=== PATIENT | female | born 1940 | race Caucasian/White ===

== ENCOUNTER 2023-04-01 20:52 | Emergency (ER) | payer MEDICARE, OTHER ==
[~2023-04-01] VITALS: Ht 154.9 cm; Wt 48.2 kg
[2023-04-01 22:09] VITALS: BP 164/88; PULSE 71; RESP 18; TEMP 98.4; O2SAT 98
== END 2023-04-01 22:11 | disposition home or self-care (01) ==
LOC: ER 20:54
DX: S92.531A Displaced fracture of distal phalanx of right lesser toe(s), initial encounter for closed fracture (principal); Z88.6 Allergy status to analgesic agent; W55.12XA Struck by horse, initial encounter; Y93.89 Activity, other specified; Y92.89 Other specified places as the place of occurrence of the external cause; Y99.8 Other external cause status
CPT/HCPCS: 73660; 99283

== ENCOUNTER 2023-08-11 10:27 | Emergency (ER) | payer MEDICARE, OTHER ==
[~2023-08-11] VITALS: Ht 154.9 cm; Wt 50.9 kg
[2023-08-11 11:16] VITALS: BP 139/77; PULSE 66; RESP 16; TEMP 98.1; O2SAT 96
[2023-08-11] MEDS ORDERED: LIDO700A32 TOP (12:25)
== END 2023-08-11 13:02 | disposition home or self-care (01) ==
LOC: ER 10:28
DX: S93.601A Unspecified sprain of right foot, initial encounter (principal); X58.XXXA Exposure to other specified factors, initial encounter; Y93.89 Activity, other specified; Y92.89 Other specified places as the place of occurrence of the external cause; Y99.8 Other external cause status
CPT/HCPCS: 73630; 99284

== ENCOUNTER 2023-12-05 09:37 | Inpatient (IN) | payer MEDICARE, OTHER ==
[2023-12-05] VITALS (19 sets, daily range): BP systolic 58–160; BP diastolic 41–84; PULSE 50–93; RESP 10–23; TEMP 98; O2SAT 93–99
[~2023-12-05] VITALS: Ht 154.9 cm; Wt 68.2 kg
[~2023-12-05 09:37] MED LIST: LIDO700A32 TOP
[2023-12-05] MEDS: normal saline 1,000 ML IV SCH (09:55)
[2023-12-05] MEDS ORDERED: DONE10TA44 PO (10:16)
[2023-12-05] MEDS ORDERED: OXYB5TAB21 PO (10:16)
[2023-12-05] MEDS ORDERED: ASPIRIN PO (10:21)
[2023-12-05] MEDS ORDERED: BETA1TAB20 PO (10:21)
[2023-12-05] MEDS ORDERED: Vitamin D3 (10:21)
[2023-12-05] MEDS ORDERED: VITA-268 PO (10:21)
[2023-12-05] MEDS ORDERED: CENTRUM (10:21)
[2023-12-05] MEDS ORDERED: verapamil 2.5 mg/ml inj IV ONE (10:43)
[2023-12-05] MEDS ORDERED: midazolam 1 mg/ML 2ml injection ONE ×8 (10:43→18:54)
[2023-12-05] MEDS ORDERED: nitroGLYCERIN 500mcg/5mL D5W 5 ML IV ONE ×2 (10:44→15:15)
[2023-12-05] MEDS ORDERED: heparin 1,000unit/ml 10ml vial 0 ML ONE (10:44)
[2023-12-05] MEDS ORDERED: iohexol 350 MG/ML 50ML vial IV ONE (10:44)
[2023-12-05] MEDS ORDERED: fentaNYL/PF 50MCG/1 ML 2ML syringe ONE ×4 (10:44→18:54)
[2023-12-05] MEDS ORDERED: heparin 1,000 UNITS/NS 500ml 500 ML ONE ×2 (10:44→12:29)
[2023-12-05] MEDS ORDERED: iohexol 350MG/ML 100ml bottle IV ONE ×6 (10:44→18:55)
[2023-12-05] MEDS ORDERED: LIDOcaine 1% (10mg/ml) 2ml vial ONE (10:45)
[2023-12-05 10:46] LABS: BASOPHILS # (AUTO) 0.1 X10'3 (0-0.2); EOSINOPHILS # (AUTO) 0.1 X10'3 (0-0.9); EOSINOPHILS % (AUTO) 1.8 % (0-6); HEMOGLOBIN 14.2 g/dl (12.0-16.0); LYMPHOCYTES # (AUTO) 1.8 X10'3 (1.1-4.8); LYMPHOCYTES % (AUTO) 33.4 % (21-51); MEAN CORPUSCULAR HEMOGLOBIN 30.6 PG (27.0-31.0); MEAN CORPUSCULAR HGB CONC 32.9 g/dL (33.0-36.5); MEAN CORPUSCULAR VOLUME 92.8 FL (78-98); MEAN PLATELET VOLUME 9.5 FL (7.4-10.4); MONOCYTES # (AUTO) 0.4 X10'3 (0-0.9); MONOCYTES % (AUTO) 7.9 % (2-12); NEUTROPHILS # (AUTO) 3.1 X10'3 (1.8-7.7); NEUTROPHILS % (AUTO) 55.9 % (42-75); PLATELET COUNT 203 X10'3 (140-440); RED BLOOD COUNT 4.63 X10'6 (4.20-5.60); RED CELL DISTRIBUTION WIDTH 14.3 % (11.5-14.5); WHITE BLOOD COUNT 5.5 X10'3 (4.5-11.0)
[2023-12-05] MEDS: diphenhydrAMINE 25mg capsule PO PRN (10:56)
[2023-12-05] MEDS: sodium bicarbonate 1meq/ml syr 150 ML in dextrose 5%-water 1,000 ML IV SCH ×2 (10:57→22:12)
[2023-12-05] MEDS ORDERED: sodium bicarbonate 1meq/ml syr 150 ML in dextrose 5%-water 1,000 ML IV ONE (11:06)
[2023-12-05 11:07] LABS: ALBUMIN 3.7 G/DL (3.4-5.0); ANION GAP 10 (8-16); BLOOD UREA NITROGEN 14 MG/DL (7-18); BUN/CREATININE RATIO 19.2 (10.0-20.0); CALCIUM 9.5 MG/DL (8.5-10.1); CHLORIDE 104 MMOL/L (99-107); CREATININE 0.73 MG/DL (0.40-0.90); GLUCOSE 99 MG/DL (70-104); MAGNESIUM 2.3 MG/DL (1.5-2.4); POTASSIUM 3.9 MMOL/L (3.5-5.1); SODIUM 142 MMOL/L (135-145); TOTAL CARBON DIOXIDE 28.3 MMOL/L (24-32); eCRCL 43 ML/MIN; eGFR 76 ML/MIN
[2023-12-05 11:33] LABS: PROTHROMBIN TIME 11.2 SECONDS (9.0-12.0)
[2023-12-05] MEDS ORDERED: phenylephrine 10mg/ml inj. -priapism dosing ONE ×3 (12:55→18:54)
[2023-12-05] MEDS ORDERED: ticagrelor 90mg tablet ONE (13:16)
[2023-12-05] MEDS: ondansetron/PF 4mg/2ml inj IV STA (13:54)
[2023-12-05] MEDS ORDERED: epiNEPHrine 0.1mg/ml 10ml syringe ONE ×2 (14:05→18:55)
[2023-12-05] MEDS ORDERED: heparin 1,000unit/ml 10ml vial 10 ML ONE ×2 (14:05→18:54)
[2023-12-05] MEDS ORDERED: LIDOcaine 2% (20 mg/ml) 5ml cardiac syringe ONE ×2 (14:05→18:55)
[2023-12-05] MEDS ORDERED: LIDOcaine 1% 30ml preserv. free vial ONE ×2 (14:05→18:54)
[2023-12-05] MEDS ORDERED: atropine 0.1mg/ml 10ml syringe ONE ×2 (14:05→18:54)
[2023-12-05] MEDS ORDERED: tirofiban 12.5mg in NS 250mL 250 ML IV ONE (14:27)
[2023-12-05] MEDS ORDERED: nitroGLYCERIN-Tridil 50MG/D5W 250 ML IV ONE (15:30)
[2023-12-05] MEDS: normal saline 1000ml 1,000 ML IV SCH (16:35)
[2023-12-05] MEDS ORDERED: nitroGLYCERIN 25mg/250mL D5W 250 ML IV SCH (16:55)
[2023-12-05] MEDS: ondansetron/PF 4mg/2ml inj IV PRN (17:27)
[2023-12-05] MEDS: tirofiban 12.5mg in NS 250mL IV SCH (17:32)
[2023-12-05] MEDS: nitroGLYCERIN 25mg/250mL D5W 250 ML IV SCH (17:40)
[2023-12-05] MEDS: PHENYLephrine 10mg/ml inj. 100 MG in normal saline 250ml IV soln 240 ML IV PRN (18:40)
[2023-12-05] MEDS: normal saline 1000ml 1,000 ML IV ONE (19:13)
[2023-12-05] MEDS ORDERED: potassium CL 10mEq/100ml bag 100 ML IV PRN (20:30)
[2023-12-05] MEDS ORDERED: nitroGLYCERIN-Tridil 50MG/D5W 250 ML IV PRN (20:55)
[2023-12-05] MEDS: proCHLORperazine 10 MG/2 ml inj IV PRN (20:57)
[2023-12-05] MEDS: ketorolac tromethamine 15mg/ml inj. IM ONE (20:59)
[2023-12-05] MEDS: mag hydrox/Alum hydrox/simeth 30ml oral suspension PO ONE (22:18)
[2023-12-05 23:37] LABS: ALBUMIN 2.6 G/DL (3.4-5.0); ANION GAP 11 (8-16); BLOOD UREA NITROGEN 12 MG/DL (7-18); CHLORIDE 108 MMOL/L (99-107); CREATININE 0.75 MG/DL (0.40-0.90); GLUCOSE 248 MG/DL (70-104); MAGNESIUM 1.8 MG/DL (1.5-2.4); POTASSIUM 3.8 MMOL/L (3.5-5.1); SODIUM 141 MMOL/L (135-145); TOTAL CARBON DIOXIDE 22.3 MMOL/L (24-32); eCRCL 41 ML/MIN; eGFR 73 ML/MIN
[2023-12-05 23:39] LABS: CALCIUM 7.3 MG/DL (8.5-10.1)
[2023-12-05 23:42] LABS: HEMATOCRIT 34.6 % (35.0-45.0); HEMOGLOBIN 11.5 g/dl (12.0-16.0); MEAN CORPUSCULAR HEMOGLOBIN 30.7 PG (27.0-31.0); MEAN CORPUSCULAR HGB CONC 33.4 g/dL (33.0-36.5); MEAN CORPUSCULAR VOLUME 92.1 FL (78-98); MEAN PLATELET VOLUME 10.1 FL (7.4-10.4); PLATELET COUNT 222 X10'3 (140-440); RED BLOOD COUNT 3.76 X10'6 (4.20-5.60); WHITE BLOOD COUNT 14.3 X10'3 (4.5-11.0)
[2023-12-06] VITALS (24 sets, daily range): BP systolic 92–138; BP diastolic 64–80; PULSE 75–96; RESP 14–22; O2SAT 78–98
[2023-12-06] MEDS: HYDROcodone/acetaminophen 5mg/325mg tablet PO PRN (01:04)
[2023-12-06] MEDS: potassium Cl 40MEQ/1/2NS 520ml 520 ML IV PRN (02:16)
[2023-12-06] MEDS: magnesium 4gm in 100ml NS 100 ML IV PRN (02:21)
[2023-12-06] MEDS ORDERED: ASPI-1397 PO (06:35)
[2023-12-06] MEDS ORDERED: CHOL100017 PO (06:35)
[2023-12-06] MEDS ORDERED: ATOR40TA72 PO (06:35)
[2023-12-06] MEDS ORDERED: MULT-1085 PO (06:35)
[2023-12-06 06:46] LABS: BASOPHILS % (AUTO) 0.2 % (0-1); EOSINOPHILS % (AUTO) 0 % (0-6); HEMOGLOBIN 10.3 g/dl (12.0-16.0); LYMPHOCYTES # (AUTO) 1.3 X10'3 (1.1-4.8); LYMPHOCYTES % (AUTO) 8.8 % (21-51); MEAN CORPUSCULAR HEMOGLOBIN 30.6 PG (27.0-31.0); MEAN CORPUSCULAR HGB CONC 33.2 g/dL (33.0-36.5); MEAN CORPUSCULAR VOLUME 92.2 FL (78-98); MEAN PLATELET VOLUME 10.3 FL (7.4-10.4); MONOCYTES # (AUTO) 1.1 X10'3 (0-0.9); MONOCYTES % (AUTO) 7.4 % (2-12); NEUTROPHILS # (AUTO) 11.9 X10'3 (1.8-7.7); NEUTROPHILS % (AUTO) 83.6 % (42-75); PLATELET COUNT 205 X10'3 (140-440); RED BLOOD COUNT 3.36 X10'6 (4.20-5.60); RED CELL DISTRIBUTION WIDTH 14.6 % (11.5-14.5); WHITE BLOOD COUNT 14.3 X10'3 (4.5-11.0)
[2023-12-06 07:03] LABS: ALANINE AMINOTRANSFERASE 84 U/L (12-78); ALBUMIN 2.6 G/DL (3.4-5.0); ALKALINE PHOSPHATASE 48 IU/L (46-116); ANION GAP 9 (8-16); ASPARTATE AMINO TRANSFERASE 259 U/L (10-37); BILIRUBIN,TOTAL 0.7 MG/DL (0.1-1.0); BLOOD UREA NITROGEN 14 MG/DL (7-18); BUN/CREATININE RATIO 17.9 (10.0-20.0); CALCIUM 7.4 MG/DL (8.5-10.1); CHLORIDE 105 MMOL/L (99-107); CREATININE 0.78 MG/DL (0.40-0.90); GLUCOSE 212 MG/DL (70-104); MAGNESIUM 3.3 MG/DL (1.5-2.4); POTASSIUM 4.2 MMOL/L (3.5-5.1); SODIUM 139 MMOL/L (135-145); TOTAL CARBON DIOXIDE 25.4 MMOL/L (24-32); TOTAL PROTEIN 5.3 G/DL (6.4-8.2); eCRCL 40 ML/MIN; eGFR 70 ML/MIN
[2023-12-06] MEDS: ketorolac tromethamine 15mg/ml inj. IV ONE (07:19)
[2023-12-06] MEDS: ticagrelor 90mg tablet PO SCH (07:29)
[2023-12-06] MEDS ORDERED: LIDOcaine 1% 30ml preserv. free vial ONE (10:21)
[2023-12-06] MEDS: HYDROcodone/acetaminophen 10/325mg tab PO PRN (12:23)
[2023-12-06] MEDS: normal saline 1000ml 1,000 ML IV SCH (18:43)
[2023-12-06] MEDS ORDERED: acetaminophen 325mg tablet PO PRN (19:40)
[2023-12-06] MEDS ORDERED: magnesium hydroxide 30ml (MOM) UD suspension PO PRN (19:40)
[2023-12-06] MEDS ORDERED: morphine 4 MG/ML inj SYRINge IV PRN ×2 (19:40)
[2023-12-06] MEDS ORDERED: ticagrelor 90mg tablet PO SCH (20:00)
[2023-12-06] MEDS: midodrine 5mg tablet PO ONE (20:32)
[2023-12-06] MEDS: midodrine tablet 2.5 MG TABLET PO ONE (20:32)
[2023-12-06] MEDS: oxybutynin 5mg tablet PO SCH (20:34)
[2023-12-06] MEDS: docusate sod 100mg capsule PO SCH (20:34)
[2023-12-06] MEDS: enoxaparin 30mg/0.3ml syringe SUBCUT SCH (20:35)
[2023-12-07] VITALS (31 sets, daily range): BP systolic 95–121; BP diastolic 55–79; PULSE 77–113; RESP 14–26; O2SAT 87–98
[2023-12-07 03:20] LABS: BASOPHILS % (AUTO) 0.1 % (0-1); EOSINOPHILS % (AUTO) 0 % (0-6); HEMATOCRIT 28.9 % (35.0-45.0); HEMOGLOBIN 9.6 g/dl (12.0-16.0); LYMPHOCYTES # (AUTO) 1.6 X10'3 (1.1-4.8); LYMPHOCYTES % (AUTO) 9.9 % (21-51); MEAN CORPUSCULAR HEMOGLOBIN 30.8 PG (27.0-31.0); MEAN CORPUSCULAR HGB CONC 33.2 g/dL (33.0-36.5); MEAN CORPUSCULAR VOLUME 92.7 FL (78-98); MEAN PLATELET VOLUME 10.1 FL (7.4-10.4); MONOCYTES # (AUTO) 1.3 X10'3 (0-0.9); NEUTROPHILS # (AUTO) 13.3 X10'3 (1.8-7.7); PLATELET COUNT 167 X10'3 (140-440); RED BLOOD COUNT 3.12 X10'6 (4.20-5.60); RED CELL DISTRIBUTION WIDTH 14.6 % (11.5-14.5); WHITE BLOOD COUNT 16.2 X10'3 (4.5-11.0)
[2023-12-07 03:29] LABS: ALBUMIN 2.4 G/DL (3.4-5.0); ANION GAP 7 (8-16); BLOOD UREA NITROGEN 18 MG/DL (7-18); CALCIUM 7.3 MG/DL (8.5-10.1); CHLORIDE 99 MMOL/L (99-107); CHOL/HDL RATIO 2.2 (0.00-4.99); CHOLESTEROL 117 MG/DL (0-200); GLUCOSE 141 MG/DL (70-104); HDL CHOLESTEROL 53 MG/DL (35-60); LDL CHOLESTEROL 60 MG/DL (50-100); MAGNESIUM 2.3 MG/DL (1.5-2.4); POTASSIUM 4.3 MMOL/L (3.5-5.1); SODIUM 135 MMOL/L (135-145); TOTAL CARBON DIOXIDE 29.3 MMOL/L (24-32); TRIGLYCERIDES 64 MG/DL (20-135); eCRCL 31 ML/MIN; eGFR 53 ML/MIN
[2023-12-07] MEDS: magnesium 2GM in 50ml NS 50 ML IV PRN (04:45)
[2023-12-07] MEDS: vitamin B comp w/Vit. C tab 1 TAB TABLET PO SCH (07:17)
[2023-12-07] MEDS: aspirin 81mg, enteric-coated 1 TAB TABLET.DR PO SCH (07:18)
[2023-12-07] MEDS: donepezil 5mg tablet PO SCH (07:18)
[2023-12-07] MEDS: pantoprazole 40mg Tablet.DR PO SCH (07:18)
[2023-12-07] MEDS: cholecalciferol (vitamin D3) 1,000 unit (25mcg) tablet PO SCH (07:19)
[2023-12-07] MEDS: metoprolol succinate 25mg (24-HOUR) SR. Tablet PO SCH (07:19)
[2023-12-07] MEDS: multivitamins, therapeutics tablet PO SCH (07:19)
[2023-12-07] MEDS: ZINC PO SCH (07:30)
[2023-12-07] MEDS: VIT C PO SCH (07:30)
[2023-12-07] MEDS: COPPER PO SCH (07:30)
[2023-12-07] MEDS: VIT E PO SCH (07:30)
[2023-12-07] MEDS: midodrine 5mg tablet PO SCH (07:30)
[2023-12-07] MEDS: VIT A PO SCH (07:30)
[2023-12-07] MEDS: lactose-reduced food (Ensure High Protein) 237ml bottle PO SCH (13:00)
[2023-12-08] VITALS (20 sets, daily range): BP systolic 87–146; BP diastolic 48–76; PULSE 64–101; RESP 14–27; TEMP 97.4–97.9; O2SAT 91–97
[2023-12-08] MEDS: amiodarone 150mg/dext, iso-os 100 ML IV ONE ×2 (04:28→04:54)
[2023-12-08] MEDS: amiodarone/D5 360MG/200ML BAG 200 ML IV SCH ×3 (05:35→10:49)
[2023-12-08] MEDS: bumetanide 0.25mg/ml 4ml vial IV ONE (07:00)
[2023-12-08 07:25] LABS: BASOPHILS % (AUTO) 0.1 % (0-1); EOSINOPHILS % (AUTO) 0 % (0-6); HEMATOCRIT 27.5 % (35.0-45.0); HEMOGLOBIN 9.1 g/dl (12.0-16.0); LYMPHOCYTES # (AUTO) 1.6 X10'3 (1.1-4.8); LYMPHOCYTES % (AUTO) 10.2 % (21-51); MEAN CORPUSCULAR HEMOGLOBIN 30.8 PG (27.0-31.0); MEAN CORPUSCULAR HGB CONC 33.1 g/dL (33.0-36.5); MEAN PLATELET VOLUME 10.8 FL (7.4-10.4); MONOCYTES # (AUTO) 0.8 X10'3 (0-0.9); MONOCYTES % (AUTO) 5.1 % (2-12); NEUTROPHILS # (AUTO) 13.5 X10'3 (1.8-7.7); NEUTROPHILS % (AUTO) 84.6 % (42-75); PLATELET COUNT 151 X10'3 (140-440); RED BLOOD COUNT 2.95 X10'6 (4.20-5.60); RED CELL DISTRIBUTION WIDTH 14.3 % (11.5-14.5); WHITE BLOOD COUNT 15.9 X10'3 (4.5-11.0)
[2023-12-08 08:14] LABS: ALANINE AMINOTRANSFERASE 381 U/L (12-78); ALBUMIN 2.1 G/DL (3.4-5.0); ALBUMIN/GLOBULIN RATIO 0.7 (1.1-1.5); ALKALINE PHOSPHATASE 62 IU/L (46-116); ANION GAP 9 (8-16); ASPARTATE AMINO TRANSFERASE 312 U/L (10-37); BILIRUBIN,TOTAL 1.4 MG/DL (0.1-1.0); BLOOD UREA NITROGEN 27 MG/DL (7-18); BUN/CREATININE RATIO 32.1 (10.0-20.0); CALCIUM 7.8 MG/DL (8.5-10.1); CHLORIDE 100 MMOL/L (99-107); CREATININE 0.84 MG/DL (0.40-0.90); GLUCOSE 161 MG/DL (70-104); MAGNESIUM 2.4 MG/DL (1.5-2.4); POTASSIUM 4.8 MMOL/L (3.5-5.1); SODIUM 133 MMOL/L (135-145); TOTAL CARBON DIOXIDE 24.3 MMOL/L (24-32); TOTAL PROTEIN 5.1 G/DL (6.4-8.2); eCRCL 37 ML/MIN; eGFR 64 ML/MIN
[2023-12-08] MEDS: magnesium 2GM in 50ml NS 50 ML IV ONE (10:53)
[2023-12-08] MEDS: amiodarone 200mg tablet PO SCH (15:54)
[2023-12-08] MEDS: furosemide 40mg/4ml inj IV ONE (18:17)
[2023-12-08] MEDS: furosemide 10 MG/1 ML 10ml inj IV STA (19:27)
[2023-12-08 21:57] LABS: ALANINE AMINOTRANSFERASE 704 U/L (12-78); ALBUMIN 2.2 G/DL (3.4-5.0); ALBUMIN/GLOBULIN RATIO 0.7 (1.1-1.5); ALKALINE PHOSPHATASE 85 IU/L (46-116); ANION GAP 9 (8-16); ASPARTATE AMINO TRANSFERASE 578 U/L (10-37); BLOOD UREA NITROGEN 33 MG/DL (7-18); BUN/CREATININE RATIO 27.7 (10.0-20.0); CALCIUM 7.4 MG/DL (8.5-10.1); CHLORIDE 98 MMOL/L (99-107); CREATININE 1.19 MG/DL (0.40-0.90); GLUCOSE 139 MG/DL (70-104); POTASSIUM 4.4 MMOL/L (3.5-5.1); SODIUM 129 MMOL/L (135-145); TOTAL CARBON DIOXIDE 22.4 MMOL/L (24-32); TOTAL PROTEIN 5.3 G/DL (6.4-8.2); eCRCL 26 ML/MIN; eGFR 43 ML/MIN
[2023-12-08] MEDS: bumetanide 0.25mg/ml 4ml vial IV SCH (22:20)
[2023-12-09] VITALS (17 sets, daily range): BP systolic 79–101; BP diastolic 49–70; PULSE 71–85; RESP 16–24; TEMP 97–97.9; O2SAT 92–98
[2023-12-09] MEDS: furosemide 10 MG/1 ML 10ml inj IV SCH
[2023-12-09] MEDS ORDERED: furosemide 10 MG/1 ML 10ml inj IV SCH
[2023-12-09 03:06] LABS: BASOPHILS % (AUTO) 0.1 % (0-1); EOSINOPHILS % (AUTO) 0.1 % (0-6); HEMATOCRIT 25.4 % (35.0-45.0); HEMOGLOBIN 8.4 g/dl (12.0-16.0); LYMPHOCYTES # (AUTO) 0.9 X10'3 (1.1-4.8); LYMPHOCYTES % (AUTO) 6.9 % (21-51); MEAN CORPUSCULAR HEMOGLOBIN 30.8 PG (27.0-31.0); MEAN CORPUSCULAR VOLUME 93.2 FL (78-98); MEAN PLATELET VOLUME 10.5 FL (7.4-10.4); MONOCYTES # (AUTO) 0.7 X10'3 (0-0.9); MONOCYTES % (AUTO) 5.6 % (2-12); NEUTROPHILS # (AUTO) 11.1 X10'3 (1.8-7.7); NEUTROPHILS % (AUTO) 87.3 % (42-75); PLATELET COUNT 155 X10'3 (140-440); RED BLOOD COUNT 2.73 X10'6 (4.20-5.60); RED CELL DISTRIBUTION WIDTH 14.4 % (11.5-14.5); WHITE BLOOD COUNT 12.7 X10'3 (4.5-11.0)
[2023-12-09 03:25] LABS: ALANINE AMINOTRANSFERASE 717 U/L (12-78); ALBUMIN 2.2 G/DL (3.4-5.0); ALBUMIN/GLOBULIN RATIO 0.7 (1.1-1.5); ALKALINE PHOSPHATASE 84 IU/L (46-116); ANION GAP 6 (8-16); ASPARTATE AMINO TRANSFERASE 597 U/L (10-37); BILIRUBIN,TOTAL 0.9 MG/DL (0.1-1.0); BLOOD UREA NITROGEN 31 MG/DL (7-18); BUN/CREATININE RATIO 30.4 (10.0-20.0); CALCIUM 7.5 MG/DL (8.5-10.1); CHLORIDE 98 MMOL/L (99-107); CREATININE 1.02 MG/DL (0.40-0.90); FREE T4 (FREE THYROXINE) 1.36 NG/DL (0.73-1.40); GLUCOSE 129 MG/DL (70-104); POTASSIUM 3.9 MMOL/L (3.5-5.1); SODIUM 130 MMOL/L (135-145); THYROID STIMULATING HORMONE 4.02 ulU/ml (0.34-4.50); TOTAL CARBON DIOXIDE 25.7 MMOL/L (24-32); TOTAL PROTEIN 5.2 G/DL (6.4-8.2); eCRCL 30 ML/MIN; eGFR 52 ML/MIN
[2023-12-09] MEDS: pantoprazole 40 MG vial IV SCH (07:31)
[2023-12-09] MEDS ORDERED: furosemide 40mg tablet PO SCH (08:00)
[2023-12-09] MEDS: bumetanide 1mg tablet PO SCH (08:00)
[2023-12-09] MEDS: spironolactone 25 MG tablet PO SCH (08:35)
[2023-12-09] MEDS: sucralfate 1 gm tablet PO ONE (10:32)
[2023-12-09 11:24] LABS: OCCULT BLOOD STOOL NEGATIVE (Neg)
[2023-12-09] MEDS: DOBUTamine-DoBUTrex 500mg/D5W 250 ML IV SCH (16:38)
[2023-12-09 19:12] LABS: BASOPHILS % (AUTO) 0.1 % (0-1); EOSINOPHILS % (AUTO) 0.1 % (0-6); HEMOGLOBIN 8.4 g/dl (12.0-16.0)
[2023-12-09 19:14] LABS: HEMATOCRIT 25.3 % (35.0-45.0); LYMPHOCYTES # (AUTO) 1.5 X10'3 (1.1-4.8); LYMPHOCYTES % (AUTO) 11.3 % (21-51); MEAN CORPUSCULAR HGB CONC 33.2 g/dL (33.0-36.5); MEAN CORPUSCULAR VOLUME 93.3 FL (78-98); MEAN PLATELET VOLUME 10.2 FL (7.4-10.4); MONOCYTES # (AUTO) 0.9 X10'3 (0-0.9); MONOCYTES % (AUTO) 7.1 % (2-12); NEUTROPHILS # (AUTO) 10.7 X10'3 (1.8-7.7); NEUTROPHILS % (AUTO) 81.4 % (42-75); PLATELET COUNT 161 X10'3 (140-440); RED BLOOD COUNT 2.71 X10'6 (4.20-5.60); RED CELL DISTRIBUTION WIDTH 14.3 % (11.5-14.5); WHITE BLOOD COUNT 13.2 X10'3 (4.5-11.0)
[2023-12-09 19:21] LABS: ALANINE AMINOTRANSFERASE 773 U/L (12-78); ALBUMIN 2.3 G/DL (3.4-5.0); ALBUMIN/GLOBULIN RATIO 0.7 (1.1-1.5); ALKALINE PHOSPHATASE 111 IU/L (46-116); ANION GAP 7 (8-16); ASPARTATE AMINO TRANSFERASE 504 U/L (10-37); BILIRUBIN,TOTAL 1.2 MG/DL (0.1-1.0); BLOOD UREA NITROGEN 36 MG/DL (7-18); BUN/CREATININE RATIO 29.8 (10.0-20.0); CALCIUM 7.8 MG/DL (8.5-10.1); CHLORIDE 96 MMOL/L (99-107); CREATININE 1.21 MG/DL (0.40-0.90); GLUCOSE 124 MG/DL (70-104); POTASSIUM 3.8 MMOL/L (3.5-5.1); SODIUM 130 MMOL/L (135-145); TOTAL CARBON DIOXIDE 26.6 MMOL/L (24-32); TOTAL PROTEIN 5.6 G/DL (6.4-8.2); eCRCL 26 ML/MIN; eGFR 42 ML/MIN
[2023-12-09] MEDS: bumetanide 0.25mg/ml 4ml vial IV ONE (19:54)
[2023-12-09 20:07] LABS: NUCLEATED RED BLOOD CELLS 2 /100WBC (0-0); PLATELET ESTIMATE NORMAL; TOTAL CELLS COUNTED 100
[2023-12-09 20:09] LABS: ANISOCYTOSIS FEW; LARGE PLATELETS FEW; POLYCHROMASIA 1+
[2023-12-10] VITALS (16 sets, daily range): BP systolic 85–110; BP diastolic 53–70; PULSE 77–123; RESP 17–24; TEMP 97.5–97.6; O2SAT 92–96
[2023-12-10 03:22] LABS: BASOPHILS % (AUTO) 0.1 % (0-1); EOSINOPHILS % (AUTO) 0.3 % (0-6); HEMATOCRIT 26.8 % (35.0-45.0); HEMOGLOBIN 8.7 g/dl (12.0-16.0); LYMPHOCYTES # (AUTO) 1.1 X10'3 (1.1-4.8); LYMPHOCYTES % (AUTO) 10.2 % (21-51); MEAN CORPUSCULAR HEMOGLOBIN 30.5 PG (27.0-31.0); MEAN CORPUSCULAR HGB CONC 32.5 g/dL (33.0-36.5); MEAN CORPUSCULAR VOLUME 93.9 FL (78-98); MEAN PLATELET VOLUME 10.1 FL (7.4-10.4); MONOCYTES % (AUTO) 9.2 % (2-12); NEUTROPHILS % (AUTO) 80.2 % (42-75); PLATELET COUNT 135 X10'3 (140-440); RED BLOOD COUNT 2.85 X10'6 (4.20-5.60); RED CELL DISTRIBUTION WIDTH 14.5 % (11.5-14.5); WHITE BLOOD COUNT 11.2 X10'3 (4.5-11.0)
[2023-12-10 03:31] LABS: ALANINE AMINOTRANSFERASE 692 U/L (12-78); ALBUMIN 2.2 G/DL (3.4-5.0); ALBUMIN/GLOBULIN RATIO 0.8 (1.1-1.5); ALKALINE PHOSPHATASE 101 IU/L (46-116); ANION GAP 12 (8-16); ASPARTATE AMINO TRANSFERASE 389 U/L (10-37); BILIRUBIN,TOTAL 1.2 MG/DL (0.1-1.0); BLOOD UREA NITROGEN 35 MG/DL (7-18); BUN/CREATININE RATIO 33.7 (10.0-20.0); CALCIUM 7.6 MG/DL (8.5-10.1); CHLORIDE 96 MMOL/L (99-107); CREATININE 1.04 MG/DL (0.40-0.90); GLUCOSE 121 MG/DL (70-104); POTASSIUM 3.6 MMOL/L (3.5-5.1); SODIUM 130 MMOL/L (135-145); TOTAL CARBON DIOXIDE 22.4 MMOL/L (24-32); TOTAL PROTEIN 5.1 G/DL (6.4-8.2); eCRCL 30 ML/MIN; eGFR 50 ML/MIN
[2023-12-10] MEDS ORDERED: albumin (Human) 5% 250ml 250 ML IV PRN (04:00)
[2023-12-10] MEDS: pantoprazole 40mg Tablet.DR PO SCH (08:40)
[2023-12-10] MEDS: glycopyrrolate 0.2mg/ml inj IV SCH (12:33)
[2023-12-10] MEDS: potassium Cl 20 mEq SR tablet PO PRN (19:43)
[2023-12-11] VITALS (19 sets, daily range): BP systolic 91–116; BP diastolic 47–72; PULSE 64–96; RESP 14–23; TEMP 97.1–97.8; O2SAT 95–98
[2023-12-11 07:01] LABS: ALANINE AMINOTRANSFERASE 550 U/L (12-78); ALBUMIN 2.2 G/DL (3.4-5.0); ALBUMIN/GLOBULIN RATIO 0.7 (1.1-1.5); ALKALINE PHOSPHATASE 109 IU/L (46-116); ANION GAP 10 (8-16); ASPARTATE AMINO TRANSFERASE 224 U/L (10-37); BILIRUBIN,TOTAL 1.2 MG/DL (0.1-1.0); BLOOD UREA NITROGEN 28 MG/DL (7-18); BUN/CREATININE RATIO 30.4 (10.0-20.0); CALCIUM 8.1 MG/DL (8.5-10.1); CHLORIDE 94 MMOL/L (99-107); CREATININE 0.92 MG/DL (0.40-0.90); GLUCOSE 117 MG/DL (70-104); POTASSIUM 3.9 MMOL/L (3.5-5.1); SODIUM 129 MMOL/L (135-145); TOTAL CARBON DIOXIDE 25.1 MMOL/L (24-32); TOTAL PROTEIN 5.5 G/DL (6.4-8.2); eCRCL 34 ML/MIN; eGFR 58 ML/MIN
[2023-12-11] MEDS ORDERED: acetaminophen 325mg tablet PO PRN (08:35)
[2023-12-11] MEDS ORDERED: magnesium citrate 296ml oral solution PO ONE (22:00)
[2023-12-11] MEDS: normal saline 1000ml 1,000 ML IV SCH (22:18)
[2023-12-11] MEDS: magnesium citrate 296ml oral solution PO ONE (23:31)
[2023-12-12] VITALS (18 sets, daily range): BP systolic 90–125; BP diastolic 54–83; PULSE 63–79; RESP 14–26; TEMP 97–97.9; O2SAT 92–98
[2023-12-12 08:02] LABS: ALANINE AMINOTRANSFERASE 546 U/L (12-78); ALBUMIN 2.3 G/DL (3.4-5.0); ALBUMIN/GLOBULIN RATIO 0.8 (1.1-1.5); ALKALINE PHOSPHATASE 112 IU/L (46-116); ANION GAP 5 (8-16); ASPARTATE AMINO TRANSFERASE 207 U/L (10-37); BLOOD UREA NITROGEN 23 MG/DL (7-18); BUN/CREATININE RATIO 30.3 (10.0-20.0); CALCIUM 8.2 MG/DL (8.5-10.1); CHLORIDE 94 MMOL/L (99-107); CREATININE 0.76 MG/DL (0.40-0.90); GLUCOSE 125 MG/DL (70-104); POTASSIUM 4.3 MMOL/L (3.5-5.1); SODIUM 127 MMOL/L (135-145); TOTAL CARBON DIOXIDE 27.6 MMOL/L (24-32); TOTAL PROTEIN 5.3 G/DL (6.4-8.2); eCRCL 41 ML/MIN; eGFR 72 ML/MIN
[2023-12-12] MEDS: albumin (human) 25% 100 ML IV solution IV SCH (15:37)
[2023-12-12] MEDS: lactose-reduced food (Ensure Enlive) - 237ml bottle PO SCH (18:11)
[2023-12-12] MEDS: metoclopramide 5 mg/ml inj IV SCH (20:00)
[2023-12-12] MEDS: apixaban 2.5mg tablet PO SCH (21:58)
[2023-12-12] MEDS: metoclopramide 10mg tablet PO PRN (21:58)
[2023-12-13] VITALS (23 sets, daily range): BP systolic 92–119; BP diastolic 49–90; PULSE 63–91; RESP 14–24; TEMP 97–97.7; O2SAT 86–98
[2023-12-13 07:55] LABS: ALANINE AMINOTRANSFERASE 464 U/L (12-78); ALBUMIN 2.7 G/DL (3.4-5.0); ALKALINE PHOSPHATASE 100 IU/L (46-116); ANION GAP 10 (8-16); ASPARTATE AMINO TRANSFERASE 174 U/L (10-37); BILIRUBIN,TOTAL 1.1 MG/DL (0.1-1.0); BLOOD UREA NITROGEN 17 MG/DL (7-18); BUN/CREATININE RATIO 24.6 (10.0-20.0); CALCIUM 8.3 MG/DL (8.5-10.1); CHLORIDE 92 MMOL/L (99-107); CREATININE 0.69 MG/DL (0.40-0.90); GLUCOSE 121 MG/DL (70-104); POTASSIUM 4.6 MMOL/L (3.5-5.1); SODIUM 125 MMOL/L (135-145); TOTAL CARBON DIOXIDE 23.5 MMOL/L (24-32); TOTAL PROTEIN 5.5 G/DL (6.4-8.2); eCRCL 45 ML/MIN; eGFR 81 ML/MIN
[2023-12-13] MEDS ORDERED: aspirin 81mg tab.chew CORPAK SCH (08:19)
[2023-12-13] MEDS ORDERED: acetaminophen 325mg/10.15ml oral unit dose solution CORPAK PRN (08:21)
[2023-12-13] MEDS: docusate sodium 100mg/10ml UD cup CORPAK SCH (08:47)
[2023-12-13] MEDS ORDERED: lactose-reduced food (Ensure Enlive) - 237ml bottle CORPAK SCH (08:48)
[2023-12-13] MEDS ORDERED: POTASSIUM CHLORIDE 20 MEQ/15 ML oral solution CORPAK PRN (08:50)
[2023-12-13] MEDS: cholecalciferol (vitamin D3) 1,000 unit (25mcg) tablet CORPAK SCH (10:05)
[2023-12-13] MEDS: vitamin B comp w/Vit. C tab 1 TAB TABLET CORPAK SCH (10:06)
[2023-12-13] MEDS: midodrine 5mg tablet CORPAK SCH (10:06)
[2023-12-13] MEDS: donepezil 5mg tablet CORPAK SCH (10:07)
[2023-12-13] MEDS: apixaban 2.5mg tablet CORPAK SCH (10:17)
[2023-12-13] MEDS: ticagrelor 90mg tablet CORPAK SCH (10:18)
[2023-12-13] MEDS: amiodarone 200mg tablet CORPAK SCH (10:19)
[2023-12-13 10:21] LABS: CLARITY,URINE CLOUDY (Clear); COLOR,URINE AMBER (Yellow); PH,URINE 8.5 (4.8-8.0)
[2023-12-13] MEDS: aspirin 81mg tab.chew CORPAK SCH (10:24)
[2023-12-13 10:29] LABS: UA COLLECTION TYPE FOLEY CATH
[2023-12-13 10:43] LABS: TRIPLE PHOSPHATE CRYST 2+ /HPF (NEGATIVE)
[2023-12-13 10:44] LABS: AMORPHOUS PHOSPHATES 1+
[2023-12-13 10:47] LABS: BACTERIA,URINE 3+ /HPF (Neg); RBC,URINE TNTC /HPF (0-2); SQUAMOUS EPITHELIAL CELL,UR FEW /LPF (FEW); WBC,URINE 20-30 /HPF (0-4)
[2023-12-13 10:49] LABS: TOTAL PROTEIN,URINE RANDOM 402.6 MG/DL
[2023-12-13] MEDS: lansoprazole 15mg solutab CORPAK SCH (13:13)
[2023-12-13] MEDS ORDERED: albuterol 2.5 MG/3 ML nebule NEB PRN (16:00)
[2023-12-13] MEDS: furosemide 10 MG/1 ML 10ml inj IV STA (16:08)
[2023-12-13] MEDS ORDERED: ipratropium/albuterol 3ml nebule NEB PRN (16:10)
[2023-12-13 17:02] LABS: PRO BRAIN NATRIURETIC PEPTIDE 9491 PG/ML (0-450)
[2023-12-13] MEDS: furosemide 10 MG/1 ML 10ml inj IV SCH (21:39)
[2023-12-13] MEDS: metoclopramide 10mg tablet CORPAK PRN (21:41)
[2023-12-13] MEDS: HYDROcodone/acetaminophen 7.5MG/325MG per 15ml UD CUP CORPAK PRN (23:12)
[2023-12-14] VITALS (30 sets, daily range): BP systolic 78–116; BP diastolic 45–74; PULSE 72–108; RESP 11–27; TEMP 97.4–98.1; O2SAT 87–97
[2023-12-14 06:23] LABS: ALANINE AMINOTRANSFERASE 352 U/L (12-78); ALBUMIN 3.1 G/DL (3.4-5.0); ALBUMIN/GLOBULIN RATIO 1.2 (1.1-1.5); ALKALINE PHOSPHATASE 83 IU/L (46-116); ANION GAP 10 (8-16); ASPARTATE AMINO TRANSFERASE 119 U/L (10-37); BILIRUBIN,TOTAL 1.8 MG/DL (0.1-1.0); BLOOD UREA NITROGEN 15 MG/DL (7-18); BUN/CREATININE RATIO 18.3 (10.0-20.0); CALCIUM 8.3 MG/DL (8.5-10.1); CHLORIDE 92 MMOL/L (99-107); CREATININE 0.82 MG/DL (0.40-0.90); GLUCOSE 119 MG/DL (70-104); POTASSIUM 3.6 MMOL/L (3.5-5.1); SODIUM 131 MMOL/L (135-145); TOTAL CARBON DIOXIDE 29.2 MMOL/L (24-32); TOTAL PROTEIN 5.7 G/DL (6.4-8.2); eCRCL 38 ML/MIN; eGFR 66 ML/MIN
[2023-12-14] MEDS: COPPER CORPAK SCH (08:00)
[2023-12-14] MEDS ORDERED: ascorbic acid 500mg tablet PO SCH (08:00)
[2023-12-14] MEDS: VIT E CORPAK SCH (08:00)
[2023-12-14] MEDS: ZINC CORPAK SCH (08:00)
[2023-12-14] MEDS: VIT A CORPAK SCH (08:00)
[2023-12-14] MEDS: VIT C CORPAK SCH (08:00)
[2023-12-14] MEDS: HYDROchlorothiazide 25mg tablet PO SCH (08:15)
[2023-12-14] MEDS ORDERED: nitroGLYCERIN-Tridil 50MG/D5W 250 ML IV PRN (08:31)
[2023-12-14] MEDS: folic acid 1mg tablet PO SCH (09:49)
[2023-12-14] MEDS: MULTIVIT-MIN/FERROUS GLUCONATE 9 MG/15 ML LIQUID CORPAK SCH (09:51)
[2023-12-14] MEDS: ferrous sulfate 325mg tablet PO SCH (09:51)
[2023-12-14] MEDS: ferrous sulfate 300mg/5ml UD oral liquid CORPAK SCH (10:08)
[2023-12-14] MEDS ORDERED: metoclopramide 10mg tablet CORPAK SCH (12:00)
[2023-12-14] MEDS: acetaminophen 325mg/10.15ml oral unit dose solution CORPAK PRN (20:21)
[2023-12-15] VITALS (17 sets, daily range): BP systolic 102–132; BP diastolic 60–82; PULSE 72–113; RESP 12–21; TEMP 97.1–98.7; O2SAT 89–96
[2023-12-15] MEDS: furosemide 10 MG/1 ML 10ml inj IV SCH (00:25)
[2023-12-15] MEDS: HYDROcodone/acetaminophen 7.5MG/325MG per 15ml UD CUP CORPAK PRN (02:03)
[2023-12-15 07:28] LABS: ALANINE AMINOTRANSFERASE 301 U/L (12-78); ALBUMIN 3.4 G/DL (3.4-5.0); ALBUMIN/GLOBULIN RATIO 1.3 (1.1-1.5); ALKALINE PHOSPHATASE 85 IU/L (46-116); ANION GAP 7 (8-16); ASPARTATE AMINO TRANSFERASE 97 U/L (10-37); BILIRUBIN,TOTAL 1.9 MG/DL (0.1-1.0); BLOOD UREA NITROGEN 17 MG/DL (7-18); BUN/CREATININE RATIO 18.7 (10.0-20.0); CALCIUM 8.3 MG/DL (8.5-10.1); CHLORIDE 92 MMOL/L (99-107); CREATININE 0.91 MG/DL (0.40-0.90); GLUCOSE 149 MG/DL (70-104); POTASSIUM 3.5 MMOL/L (3.5-5.1); PREALBUMIN 13.2 MG/DL (19-36); SODIUM 129 MMOL/L (135-145); TOTAL CARBON DIOXIDE 29.6 MMOL/L (24-32); eCRCL 34 ML/MIN; eGFR 59 ML/MIN
[2023-12-15] MEDS ORDERED: cefepime 2g/NS 100ml ADVANTAGE 100 ML IV SCH ×2 (08:45→08:55)
[2023-12-15] MEDS: ascorbic acid 500mg tablet CORPAK SCH (09:19)
[2023-12-15 09:43] LABS: MAGNESIUM 1.9 MG/DL (1.5-2.4)
[2023-12-15] MEDS: cefepime 1GM/NS 100 ML IVPB IV SCH (10:07)
[2023-12-15] MEDS ORDERED: ondansetron 4mg rapidly disintigrating tab PO PRN (11:15)
[2023-12-15] MEDS: lactose-reduced food (Ensure Enlive) - 237ml bottle PO SCH (18:33)
[2023-12-15] MEDS ORDERED: furosemide 40mg/4ml inj IV SCH (20:00)
[2023-12-15] MEDS: furosemide 40mg/4ml inj IV SCH (20:43)
[2023-12-16] VITALS (17 sets, daily range): BP systolic 102–130; BP diastolic 65–86; PULSE 84–106; RESP 15–28; TEMP 97–98.6; O2SAT 91–97
[2023-12-16] MEDS: LORazepam 2 mg/ml vial IV ONE ×2 (03:06→08:55)
[2023-12-16 08:06] LABS: BASOPHILS % (AUTO) 0.1 % (0-1); EOSINOPHILS % (AUTO) 0.2 % (0-6); HEMATOCRIT 25.1 % (35.0-45.0); HEMOGLOBIN 8.1 g/dl (12.0-16.0); LYMPHOCYTES # (AUTO) 0.4 X10'3 (1.1-4.8); LYMPHOCYTES % (AUTO) 2.6 % (21-51); MEAN CORPUSCULAR HEMOGLOBIN 30.3 PG (27.0-31.0); MEAN CORPUSCULAR HGB CONC 32.1 g/dL (33.0-36.5); MEAN CORPUSCULAR VOLUME 94.4 FL (78-98); MEAN PLATELET VOLUME 8.8 FL (7.4-10.4); MONOCYTES # (AUTO) 0.5 X10'3 (0-0.9); MONOCYTES % (AUTO) 3.1 % (2-12); NEUTROPHILS # (AUTO) 14.8 X10'3 (1.8-7.7); PLATELET COUNT 316 X10'3 (140-440); RED BLOOD COUNT 2.66 X10'6 (4.20-5.60); RED CELL DISTRIBUTION WIDTH 15.6 % (11.5-14.5); WHITE BLOOD COUNT 15.7 X10'3 (4.5-11.0)
[2023-12-16 08:23] LABS: ALANINE AMINOTRANSFERASE 273 U/L (12-78); ALKALINE PHOSPHATASE 100 IU/L (46-116); ANION GAP 7 (8-16); ASPARTATE AMINO TRANSFERASE 86 U/L (10-37); BILIRUBIN,TOTAL 1.4 MG/DL (0.1-1.0); BLOOD UREA NITROGEN 17 MG/DL (7-18); BUN/CREATININE RATIO 21.5 (10.0-20.0); CALCIUM 8.4 MG/DL (8.5-10.1); CHLORIDE 93 MMOL/L (99-107); CREATININE 0.79 MG/DL (0.40-0.90); GLUCOSE 150 MG/DL (70-104); POTASSIUM 3.5 MMOL/L (3.5-5.1); SODIUM 131 MMOL/L (135-145); TOTAL CARBON DIOXIDE 31.4 MMOL/L (24-32); eCRCL 39 ML/MIN; eGFR 69 ML/MIN
[2023-12-16] MEDS ORDERED: LORazepam 2 mg/ml vial IV PRN (08:25)
[2023-12-16] MEDS: folic acid 1mg tablet CORPAK SCH (10:34)
[2023-12-16] MEDS: furosemide 40mg/4ml inj IV SCH (10:36)
[2023-12-16] MEDS: CefTRIAXone/D5W-Rocephin 1gm 50 ML IV SCH (11:23)
[2023-12-16] MEDS: MEROPENEM 1GM/NS 100ML IVPB 100 ML IV STA (18:22)
[2023-12-16] MEDS ORDERED: methylPREDNISolone sod succ/PF 40mg inj. IV STA (18:27)
[2023-12-16] MEDS: methylPREDNISolone sod succ 125mg/2ml vial IV STA (20:37)
[2023-12-17] VITALS (27 sets, daily range): BP systolic 105–126; BP diastolic 64–82; PULSE 76–89; RESP 15–27; TEMP 96.6–98.1; O2SAT 90–96
[2023-12-17] MEDS ORDERED: methylPREDNISolone sod succ 125mg/2ml vial IV SCH
[2023-12-17] MEDS: methylPREDNISolone sod succ/PF 40mg inj. IV SCH (02:14)
[2023-12-17 04:54] LABS: ALANINE AMINOTRANSFERASE 213 U/L (12-78); ALBUMIN 2.7 G/DL (3.4-5.0); ALBUMIN/GLOBULIN RATIO 0.9 (1.1-1.5); ALKALINE PHOSPHATASE 120 IU/L (46-116); ANION GAP 3 (8-16); ASPARTATE AMINO TRANSFERASE 57 U/L (10-37); BILIRUBIN,TOTAL 1.5 MG/DL (0.1-1.0); BLOOD UREA NITROGEN 16 MG/DL (7-18); BUN/CREATININE RATIO 21.3 (10.0-20.0); CALCIUM 8.2 MG/DL (8.5-10.1); CHLORIDE 93 MMOL/L (99-107); CREATININE 0.75 MG/DL (0.40-0.90); GLUCOSE 215 MG/DL (70-104); POTASSIUM 3.4 MMOL/L (3.5-5.1); SODIUM 133 MMOL/L (135-145); TOTAL PROTEIN 5.8 G/DL (6.4-8.2); eCRCL 41 ML/MIN; eGFR 73 ML/MIN
[2023-12-17] MEDS: MEROPENEM 1GM/NS 100ML IVPB 100 ML IV SCH (09:20)
[2023-12-17] MEDS: albuterol 2.5 MG/3 ML nebule NEB PRN (15:52)
[2023-12-17] MEDS ORDERED: spironolactone 25 MG tablet PO SCH (16:25)
[2023-12-17] MEDS: metolazone 2.5mg tablet CORPAK SCH (21:00)
[2023-12-17] MEDS: spironolactone 25 MG tablet PO SCH (21:00)
[2023-12-18] VITALS (20 sets, daily range): BP systolic 92–111; BP diastolic 50–70; PULSE 73–95; RESP 12–28; TEMP 97–98.1; O2SAT 74–99
[2023-12-18] MEDS: bumetanide 0.25mg/ml 4ml vial IV STA (03:11)
[2023-12-18] MEDS: morphine 2 MG/ML inj. syringe IV ONE (03:53)
[2023-12-18 04:52] LABS: ABG BASE EXCESS 11.6 mmol/L (-2.0-2.0); ABG HCO3 35.2 mmol/L (22.0-26.0); ABG OXYGEN SATURATION 92.9 % (94-97); ABG PCO2 (T) 41.5 mmHg (32.0-45.0); ABG PH (T) 7.546 (7.350-7.450); ABG PO2 (T) 62.6 mmHg (75.0-100.0); ALLEN'S TEST Modified; FCOHb 0.2 % (0.0-3.9); FHHb 7.1 % (0.0-5.0); FMetHb 0.3 % (0.0-1.5); FO2Hb 92.4 % (94-97); MODE MASK - BIPAP; PATIENT TEMPERATURE 36.7; RESPIRATORY RATE 18 b/min
[2023-12-18] MEDS: methylPREDNISolone sod succ/PF 40mg inj. IV SCH (08:42)
[2023-12-18 11:04] LABS: GLUCOSE,BODY FLUID 150 MG/DL; LDH,BODY FLUID 205 U/L; TOTAL PROTEIN,BODY FLUID 2.3 G/DL
[2023-12-18 11:11] LABS: BFSOURCE RIGHT PLEURAL FLD; PLEURAL FLUID PH 7.576 (7.63-7.65)
[2023-12-18] MEDS ORDERED: mag hydrox/Alum hydrox/simeth 30ml oral suspension PO PRN (11:40)
[2023-12-18 12:00] LABS: BF RBC COUNT 985 /CU MM; BF WBC COUNT 148 /CU MM (0-1000); BFAPPEAR HAZY; BFCOLOR YELLOW; BFSOURCE RIGHT PLEURAL FLD; BFVOLUME 44.5 ML; NEUTROPHILS,BODY FLUID 91 %
[2023-12-18 12:01] LABS: BF MESOTHELIAL CELLS FEW; LYMPHOCYTES,BODY FLUID 9 %; MONOCYTES,BODY FLUID 0 %
[2023-12-18] MEDS: spironolactone 25 MG tablet CORPAK SCH (21:00)
[2023-12-19] VITALS (19 sets, daily range): BP systolic 89–111; BP diastolic 50–76; PULSE 70–88; RESP 14–26; TEMP 96.7–98; O2SAT 88–98
[2023-12-19] MEDS: metoprolol tartrate 12.5mg (1/2 tablet) PO SCH (00:40)
[2023-12-19] MEDS: midodrine 5mg tablet PO ONE (00:57)
[2023-12-19 07:51] LABS: BASOPHILS % (AUTO) 0 % (0-1); EOSINOPHILS % (AUTO) 0 % (0-6); HEMATOCRIT 25.2 % (35.0-45.0); HEMOGLOBIN 7.9 g/dl (12.0-16.0); LYMPHOCYTES # (AUTO) 0.1 X10'3 (1.1-4.8); LYMPHOCYTES % (AUTO) 0.9 % (21-51); MEAN CORPUSCULAR HEMOGLOBIN 29.2 PG (27.0-31.0); MEAN CORPUSCULAR HGB CONC 31.4 g/dL (33.0-36.5); MEAN CORPUSCULAR VOLUME 93.1 FL (78-98); MEAN PLATELET VOLUME 8.4 FL (7.4-10.4); MONOCYTES # (AUTO) 0.5 X10'3 (0-0.9); NEUTROPHILS % (AUTO) 95.1 % (42-75); PLATELET COUNT 415 X10'3 (140-440); RED BLOOD COUNT 2.71 X10'6 (4.20-5.60); RED CELL DISTRIBUTION WIDTH 16.1 % (11.5-14.5); WHITE BLOOD COUNT 13.7 X10'3 (4.5-11.0)
[2023-12-19 08:14] LABS: ALANINE AMINOTRANSFERASE 142 U/L (12-78); ALBUMIN 2.5 G/DL (3.4-5.0); ALBUMIN/GLOBULIN RATIO 0.8 (1.1-1.5); ALKALINE PHOSPHATASE 122 IU/L (46-116); ANION GAP 6 (8-16); ASPARTATE AMINO TRANSFERASE 33 U/L (10-37); BLOOD UREA NITROGEN 38 MG/DL (7-18); BUN/CREATININE RATIO 39.2 (10.0-20.0); CALCIUM 8.8 MG/DL (8.5-10.1); CHLORIDE 92 MMOL/L (99-107); CREATININE 0.97 MG/DL (0.40-0.90); GLUCOSE 161 MG/DL (70-104); POTASSIUM 3.8 MMOL/L (3.5-5.1); SODIUM 135 MMOL/L (135-145); TOTAL CARBON DIOXIDE 37.2 MMOL/L (24-32); TOTAL PROTEIN 5.5 G/DL (6.4-8.2); eCRCL 32 ML/MIN; eGFR 55 ML/MIN
[2023-12-19 08:48] LABS: LACTATE DEHYDROGENASE 351 U/L (81-234)
[2023-12-19] MEDS: midodrine 5mg tablet CORPAK SCH (09:48)
[2023-12-19] MEDS: spironolactone 25 MG tablet CORPAK SCH (13:00)
[2023-12-19 13:42] LABS: ABG BASE EXCESS 12.3 mmol/L (-2.0-2.0); ABG HCO3 35.9 mmol/L (22.0-26.0); ABG OXYGEN SATURATION 83.1 % (94-97); ABG PCO2 (T) 41.9 mmHg (32.0-45.0); ALLEN'S TEST POSITIVE; FCOHb 0.5 % (0.0-3.9); FHHb 16.8 % (0.0-5.0); FMetHb 0.3 % (0.0-1.5); FO2Hb 82.4 % (94-97); MODE MASK - BIPAP; PATIENT TEMPERATURE 36.7; PEEP 6 cm H2O; RESPIRATORY RATE 12 b/min; TIDAL VOLUME 520 mL; TOTAL HEMOGLOBIN 9.4 G/dl (12.0-16.0)
[2023-12-19] MEDS ORDERED: mag & alum hydrox/simeth susp 40 ML, diphenhydrAMINE oral solution 100 MG, LIDOcaine 2%... PO PRN (14:35)
[2023-12-19] MEDS: lactose-reduced food (Ensure Enlive) - 237ml bottle PO SCH (18:54)
[2023-12-19] MEDS: clotrimazole 10mg troche MM SCH (19:23)
[2023-12-19] MEDS ORDERED: apixaban 2.5mg tablet PO SCH (20:00)
[2023-12-19] MEDS: magnesium hydroxide 30ml (MOM) UD suspension CORPAK PRN (22:41)
[2023-12-19] MEDS: hydrOXYzine 25 MG tablet PO PRN (23:01)
[2023-12-19] MEDS: sucralfate 1 gm tablet PO SCH (23:01)
[2023-12-20 00:19] VITALS: PULSE 76; PULSE 86; RESP 15; RESP 22; O2SAT 92
[2023-12-20 02:00] VITALS: BP 119/70; PULSE 75; RESP 20; TEMP 97.5; O2SAT 91
[2023-12-20 03:21] LABS: ABG BASE EXCESS 15.6 mmol/L (-2.0-2.0); ABG HCO3 40.5 mmol/L (22.0-26.0); ABG OXYGEN SATURATION 84.5 % (94-97); ABG PCO2 (T) 50.2 mmHg (32.0-45.0); ABG PH (T) 7.522 (7.350-7.450); ABG PO2 (T) 46.9 mmHg (75.0-100.0); ALLEN'S TEST POSITIVE; FCOHb 0.3 % (0.0-3.9); FHHb 15.4 % (0.0-5.0); FMetHb 0.3 % (0.0-1.5); MODE MASK - BIPAP; PATIENT TEMPERATURE 36.4; TIDAL VOLUME 520 mL; TOTAL HEMOGLOBIN 9.7 G/dl (12.0-16.0)
[2023-12-20 03:25] VITALS: PULSE 73; RESP 32; O2SAT 85
[2023-12-20 03:46] LABS: BASOPHILS % (AUTO) 0 % (0-1); EOSINOPHILS % (AUTO) 0 % (0-6); HEMATOCRIT 27.6 % (35.0-45.0); HEMOGLOBIN 8.8 g/dl (12.0-16.0); LYMPHOCYTES # (AUTO) 0.3 X10'3 (1.1-4.8); LYMPHOCYTES % (AUTO) 1.5 % (21-51); MEAN CORPUSCULAR VOLUME 93.8 FL (78-98); MEAN PLATELET VOLUME 8.1 FL (7.4-10.4); MONOCYTES # (AUTO) 0.6 X10'3 (0-0.9); MONOCYTES % (AUTO) 3.2 % (2-12); NEUTROPHILS % (AUTO) 95.3 % (42-75); PLATELET COUNT 492 X10'3 (140-440); RED BLOOD COUNT 2.95 X10'6 (4.20-5.60); RED CELL DISTRIBUTION WIDTH 15.9 % (11.5-14.5); WHITE BLOOD COUNT 18.9 X10'3 (4.5-11.0)
[2023-12-20 04:03] LABS: FREE T4 (FREE THYROXINE) 1.05 NG/DL (0.73-1.40); THYROID STIMULATING HORMONE 3.03 ulU/ml (0.34-4.50)
[2023-12-20 06:00] VITALS: BP 115/75; PULSE 78; RESP 22; TEMP 97.5; O2SAT 88
[2023-12-20 06:30] VITALS: O2SAT 88
[2023-12-20 07:29] VITALS: PULSE 72; RESP 24; O2SAT 93
[2023-12-20] MEDS ORDERED: morphine 10mg/ml inj. IV PRN ×2 (09:30→09:45)
[2023-12-20] MEDS: morphine 10mg/0.5ml (conc. morphine) oral syringe PO PRN (10:03)
[2023-12-20] MEDS: LORazepam 2 mg/ml vial IV PRN (10:46)
[2023-12-20] MEDS: morphine 10mg/ml inj. IV PRN (12:06)
== END 2023-12-20 14:12 | DRG 321 ==
LOC: SSTAY O 09:37 → CICU 2S 15:40 → PCU 3S 12-08 16:02
PROVIDERS: ADMIT Internal Medicine Cardiovascular Disease; ATTEND Internal Medicine Cardiovascular Disease
PROC: 027037Z Dilation of Coronary Artery, One Artery with Four or More Drug-eluting Intraluminal Devices, Percutaneous Approach (ICD-10-PCS; principal; 2023-12-05)
PROC: 4A023N7 Measurement of Cardiac Sampling and Pressure, Left Heart, Percutaneous Approach (ICD-10-PCS; 2023-12-05)
PROC: B2111ZZ Fluoroscopy of Multiple Coronary Arteries using Low Osmolar Contrast (ICD-10-PCS; 2023-12-05)
PROC: B2151ZZ Fluoroscopy of Left Heart using Low Osmolar Contrast (ICD-10-PCS; 2023-12-05)
PROC: 0W9D3ZZ Drainage of Pericardial Cavity, Percutaneous Approach (ICD-10-PCS; 2023-12-05)
PROC: 027034Z Dilation of Coronary Artery, One Artery with Drug-eluting Intraluminal Device, Percutaneous Approach (ICD-10-PCS; 2023-12-09)
PROC: 3E033PZ Introduction of Platelet Inhibitor into Peripheral Vein, Percutaneous Approach (ICD-10-PCS; 2023-12-09)
PROC: B2101ZZ Fluoroscopy of Single Coronary Artery using Low Osmolar Contrast (ICD-10-PCS; 2023-12-09)
PROC: 5A09357 Assistance with Respiratory Ventilation, Less than 24 Consecutive Hours, Continuous Positive Airway Pressure (ICD-10-PCS; 2023-12-13)
PROC: 5A09457 Assistance with Respiratory Ventilation, 24-96 Consecutive Hours, Continuous Positive Airway Pressure (ICD-10-PCS; 2023-12-15)
PROC: 02HV33Z Insertion of Infusion Device into Superior Vena Cava, Percutaneous Approach (ICD-10-PCS; 2023-12-16)
PROC: 0W9B3ZZ Drainage of Left Pleural Cavity, Percutaneous Approach (ICD-10-PCS; 2023-12-18)
PROC: 0W993ZZ Drainage of Right Pleural Cavity, Percutaneous Approach (ICD-10-PCS; 2023-12-18)
PROC: 5A09357 Assistance with Respiratory Ventilation, Less than 24 Consecutive Hours, Continuous Positive Airway Pressure (ICD-10-PCS; 2023-12-18)
PROC: 5A0935A Assistance with Respiratory Ventilation, Less than 24 Consecutive Hours, High Flow/Velocity Cannula (ICD-10-PCS; 2023-12-18)
PROC: 5A09357 Assistance with Respiratory Ventilation, Less than 24 Consecutive Hours, Continuous Positive Airway Pressure (ICD-10-PCS; 2023-12-19)
PROC: 5A0935A Assistance with Respiratory Ventilation, Less than 24 Consecutive Hours, High Flow/Velocity Cannula (ICD-10-PCS; 2023-12-19)
PROC: 5A0935A Assistance with Respiratory Ventilation, Less than 24 Consecutive Hours, High Flow/Velocity Cannula (ICD-10-PCS; 2023-12-20)
DX: I25.10 Atherosclerotic heart disease of native coronary artery without angina pectoris (principal); A41.9 Sepsis, unspecified organism; I21.9 Acute myocardial infarction, unspecified; I25.42 Coronary artery dissection; J96.21 Acute and chronic respiratory failure with hypoxia; J69.0 Pneumonitis due to inhalation of food and vomit; I31.39 Other pericardial effusion (noninflammatory); N39.0 Urinary tract infection, site not specified; E87.4 Mixed disorder of acid-base balance; E87.6 Hypokalemia; T50.2X5A Adverse effect of carbonic-anhydrase inhibitors, benzothiadiazides and other diuretics, initial encounter; I48.91 Unspecified atrial fibrillation; K21.9 Gastro-esophageal reflux disease without esophagitis; F32.A Depression, unspecified; I50.9 Heart failure, unspecified; K22.4 Dyskinesia of esophagus; Z87.891 Personal history of nicotine dependence; Y92.89 Other specified places as the place of occurrence of the external cause; Z51.5 Encounter for palliative care
CPT/HCPCS: 32555; 33016; 93308; 93458; C9600; 36415; 36600; 71045; 71046; 74018; 76700; 76942; 80048; 80053; 80061; 81001; 82272; 82570; 82803; 82945; 82948; 83605; 83615; 83735; 83880; 83986; 84100; 84133; 84134; 84145; 84156; 84157; 84300; 84439; 84443; 84484; 84540; 85007; 85018; 85025; 85027; 85610; 87040; 87070; 87077; 87081; 87088; 87186; 89051; 92508; 92616; 93005; 93970; 94640; 94660; 94664; 94760; 97110; 97116; 97161; 97530; 97535; 99152; 99153; A4314; A4333; A4615; A4620; A5200; A6213; A6253; A6258; A6402; A6446; A6449; C1725; C1729; C1751; C1769; C1874; C1892; C1894; C9113; G0378; J0171; J0282; J0461; J0692; J0696; J0780; J1250; J1644; J1650; J1885; J1940; J2060; J2185; J2250; J2270; J2274; J2370; J2371; J2405; J2765; J2919; J3010; J3246; J3475; J3480; J3490; J7030; J7040; J7050; J7070; J8597; P9047; Q0163; Q0177; Q9967